=== PATIENT | female | born 1990 | race Caucasian/White ===

== ENCOUNTER 2017-01-16 12:29 | Emergency (ER) | payer SELFPAY ==
[~2017-01-16 12:29] MED LIST: COL100 PO; MOTRIN800 MG PO; NOR10T PO; TORADOL10 MG PO
[2017-01-16 14:38] VITALS: BP 120/65
== END 2017-01-16 14:38 | disposition home or self-care (01) ==
LOC: ED 12:29
DX: J04.0 Acute laryngitis (principal)
CPT/HCPCS: J7512; Q0092

== ENCOUNTER 2017-01-22 01:55 | Emergency (ER) | payer SELFPAY ==
[~2017-01-22] VITALS: Ht 162.6 cm; Wt 98.4 kg
[2017-01-22 05:54] VITALS: BP 103/69
== END 2017-01-22 05:54 | disposition home or self-care (01) ==
LOC: ED 01:55
DX: S33.5XXA Sprain of ligaments of lumbar spine, initial encounter (principal); S83.8X1A Sprain of other specified parts of right knee, initial encounter; S43.491A Other sprain of right shoulder joint, initial encounter; X58.XXXA Exposure to other specified factors, initial encounter; Y93.89 Activity, other specified; Y92.89 Other specified places as the place of occurrence of the external cause; Y99.8 Other external cause status; Z85.830 Personal history of malignant neoplasm of bone
CPT/HCPCS: J1885

== ENCOUNTER 2017-09-10 11:15 | Emergency (ER) | payer OTHER ==
[~2017-09-10] VITALS: Ht 162.6 cm; Wt 106.1 kg
[2017-09-10 12:05] VITALS: Ht 162.6 cm; Wt 106.1 kg
[2017-09-10 14:12] VITALS: BP 112/73
== END 2017-09-10 14:12 | disposition home or self-care (01) ==
LOC: ED 11:15
DX: S16.1XXA Strain of muscle, fascia and tendon at neck level, initial encounter (principal); S39.012A Strain of muscle, fascia and tendon of lower back, initial encounter; V49.9XXA Car occupant (driver) (passenger) injured in unspecified traffic accident, initial encounter; Y93.89 Activity, other specified; Y99.8 Other external cause status; Y92.89 Other specified places as the place of occurrence of the external cause
CPT/HCPCS: J1885; Q0162